=== PATIENT | female | born 1960 | race Caucasian/White ===

== ENCOUNTER 2024-06-05 13:45 | Inpatient (IN) | payer MEDICARE ==
[~2024-06-05] VITALS: Ht 157.5 cm; Wt 84.5 kg
[2024-06-05 14:40] VITALS: PULSE 73; RESP 17; O2SAT 99
[2024-06-05 14:41] LABS: Basophils # (auto) 0.1 10 ^3/uL (0-0.2); Basophils % (auto) 1.5 % (0.0-2.0); Eosinophils # (auto) 0.2 10 ^3/uL (0-0.8); Eosinophils % (auto) 3.6 % (0.0-7.0); Hemoglobin 10.9 g/dL (12.2-16.2); Lymphocytes # (auto) 1.4 10 ^3/uL (0.4-5.4); Lymphocytes % (auto) 24.8 % (10.0-50.0); Monocytes # (auto) 0.4 10 ^3/uL (0-1.3); Monocytes % (auto) 6.3 % (0.0-12.0); Neutrophils # (auto) 3.7 10 ^3/uL (1.6-8.6); Neutrophils % (auto) 63.8 % (37.0-80.0); Nucleated Red Blood Cells % 0.1 %; Red Blood Cells 3.74 10^6/uL (4.0-5.20); White Blood Cell 5.7 10^3/uL (4.4-10.8)
[2024-06-05 14:51] LABS: Chloride 111 mmol/L (98-107); Potassium 3.6 mmol/L (3.5-5.1); Sodium 143 mmol/L (136-145)
[2024-06-05 14:52] LABS: Anion Gap 7 (5-15); Calcium 9.7 mg/dL (8.7-10.4); Carbon Dioxide 25 mmol/L (20-30)
[2024-06-05 14:57] LABS: BUN/Creatinine Ratio 7.9 (10.0-20.0); Blood Alcohol < 3.0 mg/dL (<10); Blood Urea Nitrogen 5 mg/dL (9-23); Glucose 103 mg/dL (74-106)
[2024-06-05 17:20] LABS: Urine Bacteria FEW /hpf (None Seen); Urine Blood Negative /uL (Negative); Urine Clarity Clear (Clear); Urine Protein, UAD Negative (Negative); Urine Specific Gravity 1.003 (1.001-1.035); Urine Urobilinogen Normal (Negative); Urine WBC <1 /hpf (0 - 5); Urine pH 6.5 (5.0-9.0)
[2024-06-05 17:29] LABS: Amphetamine Screen, Urine Neg (NEGATIVE); Benzodiazephine Screen, Urine Neg (NEGATIVE)
[2024-06-05 17:30] LABS: Barbiturate Scree,Urine Neg (NEGATIVE); Cannabinoid Screen, Urine Neg (NEGATIVE); Cocaine Screen, Urine Neg (NEGATIVE); Opiate Scree,Urine Neg (NEGATIVE); Phencyclidine Screen, Urine Neg (NEGATIVE)
[2024-06-05] MEDS ORDERED: DOCUSATE SOD 100 MG CAP PO PRN (17:45)
[2024-06-05] MEDS ORDERED: ACETAMINOPHEN 325 MG TAB PO PRN (17:45)
[2024-06-05] MEDS ORDERED: HYDROcodone-ACET 5/325MG TAB PO PRN (17:45)
[2024-06-05] MEDS ORDERED: ONDANSETRON HCL 4 MG/2 ML VIAL IV PRN (17:45)
[2024-06-05 18:17] LABS: Urine Color STRAW (Yellow)
[2024-06-05 19:55] VITALS: PULSE 67; RESP 14; O2SAT 99
[2024-06-05] MEDS: SODIUM CHLOR 0.9% PF (SALINE LOCK) 10ML VIAL/SYR IV SCH (22:02)
[2024-06-06 03:25] VITALS: BP 132/65; PULSE 76; RESP 18; TEMP 98.1; O2SAT 97; O2SAT 98
[2024-06-06 05:00] VITALS: BP 135/77; PULSE 73; RESP 16; TEMP 98.6; O2SAT 96
[2024-06-06 08:00] VITALS: PULSE 78
[2024-06-06 09:00] VITALS: BP 142/66; PULSE 71; RESP 16; TEMP 98.7; O2SAT 95
[2024-06-06] MEDS: ENOXAPARIN SOD 40 MG/0.4 ML SYRINGE SC SCH (10:00)
[2024-06-06] MEDS: ASPirin-EC 81 mg tab PO SCH (10:09)
[2024-06-06] MEDS ORDERED: CLOPIDOGREL BISULFATE 75 MG TAB PO ONE ×2 (12:15→14:45)
[2024-06-06 13:00] VITALS: BP_SYST 127; BP_SYST 133; BP_DIAS 79; BP_DIAS 85; PULSE 74; PULSE 82; RESP 19; RESP 20; TEMP 97.7; TEMP 98.6; O2SAT 93; O2SAT 96
[2024-06-06 14:03] LABS: Basophils # (auto) 0 10 ^3/uL (0-0.2); Basophils % (auto) 0.6 % (0.0-2.0); Eosinophils # (auto) 0.1 10 ^3/uL (0-0.8); Eosinophils % (auto) 2.8 % (0.0-7.0); Hematocrit 33.6 % (36.0-46.0); Hemoglobin 11.3 g/dL (12.2-16.2); Lymphocytes # (auto) 1.7 10 ^3/uL (0.4-5.4); Lymphocytes % (auto) 32.6 % (10.0-50.0); Mean Corpuscular Hemoglobin 29.3 pg (28.0-32.0); Mean Corpuscular Hgb Conc. 33.6 g/dL (32.0-36.0); Mean Corpuscular Volume 87.1 fL (80.0-100.0); Monocytes # (auto) 0.3 10 ^3/uL (0-1.3); Monocytes % (auto) 6.3 % (0.0-12.0); Neutrophils % (auto) 57.7 % (37.0-80.0); Red Blood Cells 3.86 10^6/uL (4.0-5.20); Red Cell Distribution Width 15.5 % (11.8-14.3); White Blood Cell 5.3 10^3/uL (4.4-10.8)
[2024-06-06 14:17] LABS: Alanine Aminotransferase 14 U/L (7-40); Albumin 4.4 g/dL (3.2-4.8); Alkaline Phosphatase 108 U/L (46-116); Anion Gap 8 (5-15); Aspartate Aminotransferase 15 U/L (13-40); BUN/Creatinine Ratio 12.5 (10.0-20.0); Blood Urea Nitrogen 8 mg/dL (9-23); Calcium 9.7 mg/dL (8.7-10.4); Carbon Dioxide 25 mmol/L (20-30); Chloride 111 mmol/L (98-107); Glucose 121 mg/dL (74-106); Magnesium 1.9 mg/dL (1.6-2.6); Potassium 3.5 mmol/L (3.5-5.1); Sodium 144 mmol/L (136-145)
[2024-06-06 14:18] LABS: Bilirubin, Total 0.4 mg/dL (0.2-1.0); Total Protein 6.8 g/dL (5.7-8.2)
[2024-06-06 14:20] LABS: Folate (Folic Acid) 9.18 ng/mL (>5.38)
[2024-06-06] MEDS ORDERED: ASPI-543 PO (14:43)
[2024-06-06] MEDS ORDERED: CLOP75TA70 PO (14:43)
[2024-06-06] MEDS ORDERED: ATOR20TA50 PO (14:43)
[2024-06-06 14:48] LABS: Triglycerides 114 mg/dL (< 150)
[2024-06-06 14:49] LABS: LDL Cholesterol 92 mg/dL (< 100)
[2024-06-06 14:50] LABS: Cholesterol 170 mg/dL (< 200); HDL Cholesterol 66 mg/dL (40-59)
[2024-06-06] MEDS ORDERED: ATORVASTATIN 20 MG TAB PO SCH (22:00)
[2024-06-07] MEDS ORDERED: CLOPIDOGREL BISULFATE 75 MG TAB PO SCH ×2 (10:00)
== END 2024-06-06 16:25 | disposition home or self-care (01) | DRG 69 ==
LOC: ER 13:45 → TELE 17:41 → TELE-EAST 06-06 03:27
PROVIDERS: ADMIT Internal Medicine Pulmonary Disease; ATTEND Emergency Medicine
DX: G45.9 Transient cerebral ischemic attack, unspecified (principal); R26.81 Unsteadiness on feet; F41.9 Anxiety disorder, unspecified; Z88.0 Allergy status to penicillin
CPT/HCPCS: 36415; 70450; 70551; 80048; 80053; 80061; 80307; 80320; 81001; 82607; 82746; 83735; 84443; 85025; 92610; 93005; G0378